=== PATIENT | female | born 1975 | race Caucasian/White ===

== ENCOUNTER 2022-02-06 13:47 | Emergency (ER) | payer BC, SELFPAY ==
[2022-02-06 13:52] VITALS: BP 111/67; PULSE 104; RESP 16; TEMP 36.6; O2SAT 95; BMI 31.0
--- NOTE | 2022-02-06 14:13 | ED_ITS ---
HPI - Alcohol General Chief Complaint: Alcohol/Intoxication Stated Complaint: ETOH Time Seen by Provider: 02/06/22 13:53 History of Present Illness HPI narrative: This 46-year-old female comes in seeking help for alcohol intoxication. She states that she has been in treatment in the past but has been drinking vodka daily for the past almost 2 weeks. She states that it is a least a bottle of vodka daily. Her last drink was a couple hours prior to arrival here. She does not report any withdrawal symptoms currently. She has not had any seizures in the past related alcohol but has had some blackouts. She is interested in going into detox. Related Data Home Medications Medication Instructions Recorded Confirmed duloxetine 60 mg capsule,delayed 60 mg PO DAILY 02/06/22 02/06/22 release (Cymbalta) gabapentin .ROUTE 02/06/22 tamoxifen 20 mg tablet 20 mg PO DAILY 02/06/22 02/06/22 Allergies Allergy/AdvReac Type Severity Reaction Status Date / Time codeine Allergy Intermediate Verified 02/06/22 13:56 Review of Systems Status of ROS Reports: 10 or more systems reviewed and unremarkable except as noted in History and below Narrative Constitutional: No fevers, no weight gain or loss. Eyes: No discharge. No vision changes. HENT: No congestion, no sore throat, no ear pain. Cardiovascular: No chest pain, no palpitations. Respiratory: No shortness of breath, no wheezes, no cough. Gastrointestinal: No abdominal pain, no vomiting, no diarrhea. Genitourinary: No dysuria, no hematuria. Musculoskeletal: Normal range of motion. Skin: No rashes, no pruritis. Neurological: No dizziness, weakness, sensory change, speech change. Endo/Heme/Allergies: No bruising or bleeding. No polydipsia. Pysch: no suicidality. Alcohol intoxication. All other systems reviewed and are negative. Exam Narrative: Exam Narrative: Constitutional: Well-developed, well-nourished, no acute distress. HEENT: Normocephalic, atraumatic. Neck: Normal range of motion. Nontender. Supple. Heart: Regular. No murmurs. Normal rate. Intact distal pulses. Lungs: Clear to auscultation. No chest discomfort. No wheezes, rhonchi, or rales. Abdomen: Normal bowel sounds. Nontender. No rebound tenderness. Genitalia: Deferred. Back: No midline tenderness. Normal range of motion. Extremities: Normal range of motion. No injury. Skin: Intact. No rash. Warm. No erythema or pallor. Neurologic: No altered sensation. No weakness. Alert and oriented. No signs of withdrawal currently. Psychiatric: No suicidality. No anxiety or depression. No insomnia. Nursing notes and vitals signs are reviewed. Const: Vital Signs, click to edit/add: Vital Signs - 24 hr 02/06/22 13:52 Temperature 98 F Pulse Rate [Pulse Oximeter] 104 H Respiratory Rate 16 Blood Pressure [[facility]] 111/67 Pulse Oximetry 95 Oxygen Delivery Me thod Room Air Course Vital Signs Vital signs: Initial Vital Signs Temperature 98 F 02/06/22 13:52 Temperature Source Temporal Artery Scan 02/06/22 13:52 Pulse Rate 104 H 02/06/22 13:52 Respiratory Rate 16 02/06/22 13:52 Blood Pressure 111/67 02/06/22 13:52 Blood Pressure Mean 81 02/06/22 13:52 Blood Pressure Position Supine 02/06/22 13:52 Pulse Oximetry 95 02/06/22 13:52 Oxygen Delivery Method 02/06/22 13:52 Vital Signs Temperature 98 F 02/06/22 13:52 Pulse Rate 104 H 02/06/22 13:52 Respiratory Rate 16 02/06/22 13:52 Blood Pressure 111/67 02/06/22 13:52 Pulse Oximetry 95 02/06/22 13:52 Oxygen Delivery Method 02/06/22 13:52 Temperature 98 F 02/06/22 13:52 Pulse Rate 104 H 02/06/22 13:52 Respiratory Rate 16 02/06/22 13:52 Blood Pressure 111/67 02/06/22 13:52 Pulse Oximetry 95 02/06/22 13:52 Oxygen Delivery Method 02/06/22 13:52 MDM - Alcohol MDM Narrative Medical decision making narrative: This patient comes in with alcohol intoxication and seeking detox. Her blood alcohol level returns at 0.22. Urine drug screen is negative. Arrangements are made for her to go to [facility]. She will be able to go by private vehicle with her significant other. Lab Data Labs: Lab Results 02/06/22 02/06/22 02/06/22 Range/Units 14:18 14:18 14:27 Urine Opiates Screen Negative (Negative) Ur Oxycodone Screen Negative (Negative) Urine Methadone Screen Negative (Negative) Ur Propoxyphene Screen Negative (Negative) Ur Barbiturates Screen Negative (Negative) U Tricyclic Antidepress Negative (Negative) Ur Phencyclidine Scrn Negative (Negative) Ur Amphetamines Screen Negative (Negative) U Methamphetamines Scrn Negative (Negative) U Benzodiazepines Scrn Negative (Negative) Urine Cocaine Screen Negative (Negative) U Marijuana (THC) Screen Negative (Negative) Ur Drug Screen Comment See Note Ethyl Alcohol 0.22 H (0.01-0.03) % SARS-CoV-2 (PCR) Negative SARS-CoV-2 (Negative) Discharge Plan Discharge Clinical Impression: Alcoholic intoxication Patient Disposition: Home w/ Parent or Adult Condition: Unchanged Additional Instructions: Proceed to detox for further evaluation and treatment. Prescriptions: No Action gabapentin .ROUTE duloxetine [Cymbalta] 60 mg capsule,delayed release(DR/EC) 60 mg PO DAILY tamoxifen 20 mg tablet 20 mg PO DAILY Follow Up/Referrals: Provider,Not a Local [Primary Care Provider] - Stand Alone Forms: [facility] [employer] Info Instructions
[2022-02-06 14:33] LABS: Amphetamine Screen Urine Negative (Negative); Barbiturate Screen Urine Negative (Negative); Benzodiazepines Screen Urine Negative (Negative); Cannabinoid Screen Urine Negative (Negative); Cocaine Screen Urine Negative (Negative); Methadone Screen Urine Negative (Negative); Methamphetamines Screen Urine Negative (Negative); Opiate Screen Urine Negative (Negative); Oxycodone Screen Urine Negative (Negative); Phencyclidine Screen Urine Negative (Negative); Tricyclic Antidepressant Urine Negative (Negative)
[2022-02-06 14:50] LABS: Ethanol* 0.22 % (0.01-0.03)
[2022-02-06 15:01] LABS: SARS PCR* Negative SARS-CoV-2 (Negative)
[2022-02-06] MEDS: LORazepam 1 MG TABLET PO (15:22)
--- NOTE | 2022-02-06 15:40 | PC.NURSE ---
Richard reviewing pt, sent labs and MD note
--- NOTE | 2022-02-06 15:50 | PC.NURSE ---
diandra jara accepts pt at this time, pt will go by private vehicle with , pt has meds with in vehicle in labeled containers and will bring
== END 2022-02-06 16:00 | disposition home or self-care (01) ==
PROVIDERS: Emergency Provider Emergency Medicine Emergency Medical Services
DX: F10.229 Alcohol dependence with intoxication, unspecified (principal); T51.0X1A Toxic effect of ethanol, accidental (unintentional), initial encounter; Y90.1 Blood alcohol level of 20-39 mg/100 ml
CPT/HCPCS: 36415; 80306; 82077; 87635; 99284; A9270